=== PATIENT | male | born 1975 | race African-American/Black ===

== ENCOUNTER 2016-06-30 01:54 | Emergency (ER) | payer BC, OTHER ==
[2016-06-30] MEDS ORDERED: PREDNISONE 20 MG TABLET PO ONE (02:18)
--- NOTE | 2016-06-30 02:18 | ER Document Report ---
ED General - General Chief Complaint: Knee Pain Stated Complaint: RIGHT KNEE, LEFT FOOT PAIN Notes: Patient is a 40-year-old male presents with complaint of pain in her right knee. Patient is a history recurrent gout. He's had doubts in multiple joints. He's had in his knee before. He says he started nose and the pain yesterday. No previous history of surgeries on his knee. No fevers. He says the pain feels exactly like his gout pain. He is on urloric. He is on indomethacin which she started yesterday when he started feeling the pain. He says prednisone is helping him significantly in the past. No recent injuries. No other complaints at this time. He denies recent alcohol use. TRAVEL OUTSIDE OF THE [place] IN LAST 30 DAYS: No - Related Data Allergies/Adverse Reactions: No Known Allergies Allergy (Unverified 04/03/12 03:22) Past Medical History - Social History Smoking Status: Never Smoker Chew tobacco use (# tins/day): No Frequency of alcohol use: Rare Drug Abuse: None Family History: Reviewed & Not Pertinent Patient has suicidal ideation: No Patient has homicidal ideation: No - Immunizations Hx Diphtheria, Pertussis, Tetanus Vaccination: No Review of Systems - Review of Systems Notes: My Normal Review Basic REVIEW OF SYSTEMS: CONSTITUTIONAL : Denies fever, chills, or sweats. Denies recent illness. EENT: Denies eye, ear, throat, or mouth pain or symptoms. Denies nasal or sinus congestion. RESPIRATORY: Denies cough, cold, or chest congestion. Denies shortness of breath, difficulty breathing, or wheezing. GASTROINTESTINAL: Denies abdominal pain. Denies nausea, vomiting, or diarrhea. Denies constipation. Last BM: MUSCULOSKELETAL: Knee pain. SKIN: Denies rash or skin lesions. NEUROLOGICAL: Denies altered mental status or loss of consciousness. Denies headache. Denies weakness or paralysis or loss of use of either side. Denies problems with gait or speech. Denies sensory or motor loss. ALL OTHER SYSTEMS REVIEWED AND NEGATIVE. Physical Exam - Vital signs Vitals: Temp Pulse Resp BP Pulse Ox 97.7 F 86 18 145/87 H 100 06/30/16 01:59 06/30/16 01:59 06/30/16 01:59 06/30/16 01:59 06/30/16 01:59 - Notes Notes: General Appearance: Well nourished, alert, cooperative, no acute distress, moderate obvious discomfort. Vitals: reviewed, See vital signs table. Extremities: strength 5/5 in all extremities, good pulses in all extremities, swelling and slight warmth to the right knee consistent with gout exacerbation. No redness. Remainder of extremities are nontender. Skin: warm, dry, appropriate color, no rash Neuro: speech clear, oriented x 3, normal affect, responds appropriately to questions. Course - Vital Signs Vital signs: Temp Pulse Resp BP Pulse Ox 97.7 F 86 18 145/87 H 100 06/30/16 01:59 06/30/16 01:59 06/30/16 01:59 06/30/16 01:59 06/30/16 01:59 - Transfer of Care Notes: 06/30/16 02:47 Patient's history and exam findings are consistent with gout. His exam findings are not consistent with septic joint. He's had no fevers and is no redness to his knee. At this time I feel he safe to be discharged home. I'll continue the indomethacin. I will place him a prednisone as he says this is helped greatly for him in the past. I will prescribe him some pain medicine for when the pain is more intense. Patient encouraged return to ER if he has redness to the knee, fevers, or increasing pain or swelling. Patient agrees with plan will be discharged home. Dictation of this chart was performed using voice recognition software; therefore, there may be some unintended grammatical errors. Discharge - Discharge Clinical Impression: Gout attack Qualifiers: Gout site: knee Gout etiology: unspecified cause Laterality: right Qualified Code(s): M10.9 - Gout, unspecified Condition: Good Disposition: HOME, SELF-CARE Additional Instructions: Gout You have been diagnosed as having gout. Gout is a problem caused by an excess of uric acid, a natural chemical found in the body. The cause of this disease is unknown. Gout arthritis occurs when crystals of uric acid form in the joints. The big toe is the most common joint involved, but any joint can become affected. Persons with gout may also form uric acid kidney stones, resulting in flank pain and blood in the urine. Nodules of uric acid may form under the skin. The first step of treatment is to decrease the inflammation in the joint with antiinflammatory medication. Medication to lower the uric acid level in the blood may then be prescribed. This medication should be taken regularly, as any sudden change in dosage may provoke an attack of gout. Some foods, such as red meat, can provoke an attack in some gout sufferers. Call the doctor if new symptoms arise, or if you do not improve. Gout Diet Changing your diet can decrease the uric acid in your blood. High levels of uric acid cause gouty arthritis and uric acid kidney stones. If you have gout , you should avoid meats that are high in purine. Meat products to avoid include liver, kidneys, and brains. In general, poultry is better than red meats. Seafoods to avoid include anchovies, sardines, tiwari, mackerel, and scallops. In addition to limiting purine-rich foods, people with gout should limit protein intake to 10-15% of total calories. Carbohydrate intake should be around 50% of total daily calories. Limit fat intake to 30% of total daily calories. Cholesterol intake should be less than 300 mg/day. Maintain or achieve a healthy body weight. Weight loss should be gradual. Rapid weight loss can actually increase uric acid levels temporarily. Alcohol, especially beer, should be avoided. Get plenty of fluids. This dilutes urinary uric acid, and helps prevent uric acid kidney stones. Drink eight to twelve cups of water daily. Please stop taking the ultram. Please follow up with your doctor this week to have your knee reevaluated. Please return to the ER immediately if you have fevers, worsening pain, or feel unwell. Prescriptions: Hydrocodone/Acetaminophen [[place] 5-325 mg Tablet] 1 tab PO Q4 PRN #16 tablet PRN Reason: For Breakthrough Pain Prednisone 10 mg PO ASDIR #42 tablet Forms: Return to Work
[2016-06-30] MEDS ORDERED: HYDROCODONE/ACETAMINOPHEN 5-325 MG 6 TAB/DSPK PO PRN (02:20)
[2016-06-30 03:00] VITALS: BP 123/63
== END 2016-06-30 03:03 | disposition home or self-care (01) ==
LOC: ER 01:54
DX: M10.9 Gout, unspecified (principal); M25.561 Pain in right knee
CPT/HCPCS: 99283; J7512

== ENCOUNTER 2018-04-06 21:19 | Emergency (ER) | payer SELFPAY ==
--- NOTE | 2018-04-06 22:12 | RADIOLOGY REPORT (SQ) ---
EXAM DESCRIPTION: XR WRIST 3 OR MORE VIEWS COMPLETED DATE/TME: 04/06/2018 00:00 CLINICAL HISTORY: 42 years, Male, pain COMPARISON: EXAM DESCRIPTION: CLINICAL HISTORY: pain COMPARISON: None FINDINGS: 3 view(s) submitted. No fracture or dislocation is identified. Bone marrow attenuation is unremarkable. No radiopaque foreign body is identified. IMPRESSION: No acute fracture or dislocation. NUMBER OF VIEWS: TECHNIQUE: LIMITATIONS: None. FINDINGS: IMPRESSION: 2010 [facility] [employer]- All Rights Reserved
[2018-04-06] MEDS ORDERED: DEXAMETHASONE SOD PHOS INJ 10 MG/1 ML VIAL IM ONE (23:56)
--- NOTE | 2018-04-07 00:09 | ER Document Report ---
HPI - HPI Patient complains to provider of: gout to left wrist Onset: Last week Onset/Duration: Gradual, Worse Quality of pain: Throbbing Severity: Severe Pain Level: 5 Context: 42-year-old male patient has a history of gout and was seen by his primary care on last Wednesday went to urgent care on Wednesday came to the ED today. He states his primary care doctor doctor started him on prednisone then he went he went to urgent care today they stopped his prednisone and started him on Indocin and [place]. He states last time he had a similar incident of gout they gave him a shot of steroid and it helped more. He states he just was having pain and nothing seemed to help so he came to the emergency room. He states he has not been taken his allopurinol as he is supposed to and is not been following his gout diet as he was supposed to. Associated Symptoms: Other Exacerbated by: Movement Relieved by: Denies Similar symptoms previously: Yes Recently seen / treated by doctor: Yes - ROS ROS below otherwise negative: Yes - CONSTITUTIONAL Constitutional: DENIES: Fever, Chills - EENT EENT: DENIES: Sore Throat, Ear Pain, Eye problems - NEURO Neurology: DENIES: Headache, Weakness, Vision blurred, Dizzinesss / Vertigo - CARDIOVASCULAR Cardiovascular: DENIES: Chest pain - RESPIRATORY Respiratory: DENIES: Coughing - GASTROINTESTINAL Gastrointestinal: DENIES: Abdominal Pain, Black / Bloody Stools - URINARY Urinary: DENIES: Dysuria, Urgency, Frequency - MUSCULOSKELETAL Musculoskeletal: REPORTS: Extremity pain - l wrist - DERM Skin Color: Erythema Skin Problems: None Past Medical History - General Information source: Patient - Social History Smoking Status: Current Some Day Smoker Chew tobacco use (# tins/day): No Frequency of alcohol use: None Drug Abuse: None Lives with: Family Family History: Reviewed & Not Pertinent Patient has suicidal ideation: No Patient has homicidal ideation: No - Past Medical History Cardiac Medical History: Reports: None Pulmonary Medical History: Reports: None EENT Medical History: Reports: None Neurological Medical History: Reports: None Endocrine Medical History: Reports: None Renal/ Medical History: Reports: None Malignancy Medical History: Reports None GI Medical History: Reports: None Musculoskeletal Medical History: Reports Hx Arthritis, Reports Hx Gout Surgical Hx: Negative - Immunizations Hx Diphtheria, Pertussis, Tetanus Vaccination: No Vertical Provider Document - CONSTITUTIONAL Agree With Documented VS: Yes Exam Limitations: No Limitations General Appearance: WD/WN, Mild Distress - INFECTION CONTROL TRAVEL OUTSIDE OF THE [place] IN LAST 30 DAYS: No - HEENT HEENT: Atraumatic, Normal ENT Exam, Normocephalic, PERRLA - RESPIRATORY Respiratory: Breath Sounds Normal, No Respiratory Distress - CARDIOVASCULAR Cardiovascular: Regular Rate, Regular Rhythm - MUSCULOSKELETAL/EXTREMETIES Musculoskeletal/Extremeties: Tender, Edema Notes: Red warm left wrist due to gout. Patient states he has not been following his instructions on his gout has not been taking his medications as prescribed. He states he went to his primary care doctor was started on prednisone they went to urgent care on Wednesday and got pain medicine and Indocin. He states that he came to the emergency room because he did not think the [place] was strong enough for his pain. - NEURO Level of Consciousness: Awake, Alert Motor/Sensory: No Motor Deficit, No Sensory Deficit Deep Tendon Reflexes: 2+ Course - Re-evaluation Re-evalutation: 04/07/18 02:55 X-rays discussed with patient and patient was given a shot of Decadron. Patient was instructed to take his prednisone and his son and [place] as instructed and to follow-up with his primary doctor. Patient was given instructions on gout diet and gout treatments. Patient was instructed to follow -up with his primary doctor. 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 Gout is a problem caused by an excess of uric acid, a natural chemical found in the body. The cause of this disease is unknown. Gout arthritis occurs when crystals of uric acid form in the joints. The big toe is the most common joint involved, but any joint can become affected. Persons with gout may also form uric acid kidney stones, resulting in flank pain and blood in the urine. Nodules of uric acid may form under the skin. The first step of treatment is to decrease the inflammation in the joint with antiinflammatory medication. Medication to lower the uric acid level in the blood may then be prescribed. This medication should be taken regularly, as any sudden change in dosage may provoke an attack of gout. Some foods, such as red meat, can provoke an attack in some gout sufferers. Call the doctor if new symptoms arise, or if you do not improve. Gout Diet Changing your diet can decrease the uric acid in your blood. High levels of uric acid cause gouty arthritis and uric acid kidney stones. If you have gout , you should avoid meats that are high in purine. Meat products to avoid include liver, kidneys, and brains. In general, poultry is better than red meats. Seafoods to avoid include anchovies, sardines, tiwari, mackerel, and scallops. In addition to limiting purine-rich foods, people with gout should limit protein intake to 10-15% of total calories. Carbohydrate intake should be around 50% of total daily calories. Limit fat intake to 30% of total daily calories. Cholesterol intake should be less than 300 mg/day. Maintain or achieve a healthy body weight. Weight loss should be gradual. Rapid weight loss can actually increase uric acid levels temporarily. Alcohol, especially beer, should be avoided. Get plenty of fluids. This dilutes urinary uric acid, and helps prevent uric acid kidney stones. Drink eight to twelve cups of water daily. STEROID MEDICATION: You have been given an injection of medicine of the cortisone/steroid class. This medication is used to control inflammation or allergy. It is often continued as a pill for a short period of time, until the acute process subsides. There are usually no side effects from short-term use of cortisone-like medications. Some persons feel an increased sense of well-being and are not sleepy at bedtime. Long-term use of cortisone medications is best avoided, unless required for a severe condition. If your condition does not remit, or relapses after the course of corticosteroid medication, you should consult your physician. Anti-Inflammatory Medication Continue taking your anti-inflammatory medication and this and as prescribed. This is an excellent, safe drug for pain control. In addition, it has potent antiinflammatory effects which are beneficial, especially in the treatment of injuries, arthritis, or tendonitis. It's best to take this medicine with food. Persons with ulcer disease or allergy to aspirin should notify their physician of this before taking this drug. Take the medication exactly as prescribed. Don't take additional doses unless instructed to do so by your doctor. If you develop wheezing, shortness of breath, hives, faintness, stomach pain, vomiting, or dark black stools, return for re-evaluation at once. Oral Narcotic Medication Continue taking your [place] as prescribed. This medication is a narcotic. It's best taken with food, as nausea can result if taken on an empty stomach. Don't operate machinery or drive within six hours of taking this medication. Do not combine this medicine with alcohol, or with any medication which can cause sedation (such as cold tablets or sleeping pills) unless you get permission from the physician. Narcotics tend to cause constipation. If possible, drink plenty of fluids and eat a diet high in fiber and fruits. FOLLOW-UP CARE: If you have been referred to a physician for follow-up care, call the physician s office for an appointment as you were instructed or within the next two days. If you experience worsening or a significant change in your symptoms, notify the physician immediately or return to the Emergency Department at any time for re-evaluation. Referrals: EVELINE GUERRIER MD [EMERITUS] - Follow up as needed
[2018-04-07 00:20] VITALS: BP 127/89
== END 2018-04-07 00:20 | disposition home or self-care (01) ==
LOC: ER 21:19
DX: M1A.0320 Idiopathic chronic gout, left wrist, without tophus (tophi) (principal); Z79.899 Other long term (current) drug therapy; F17.200 Nicotine dependence, unspecified, uncomplicated
CPT/HCPCS: 99283; 96372; 73110; J1100

== ENCOUNTER 2018-04-20 21:38 | Emergency (ER) | payer SELFPAY ==
[2018-04-20 21:45] VITALS: BP 133/82
[2018-04-20] MEDS ORDERED: OXYCODONE-ACETAMINOPHEN 5-325 MG TABLET PO ONE (22:19)
[2018-04-20] MEDS ORDERED: IBUPROFEN 600 MG TABLET PO ONE (22:19)
--- NOTE | 2018-04-20 23:23 | ER Document Report ---
ED General - General Chief Complaint: Wrist Pain Stated Complaint: LEFT WRIST SWELLING Time Seen by Provider: 04/20/18 22:19 Mode of Arrival: Ambulatory Information source: Patient Notes: 42-year-old male with gout presents with complaint of left wrist pain that has been ongoing for 1 month. Patient denies any injury. He was recently seen and diagnosed with gout which he suffers from frequently. He states he did complete his prednisone course but that the pain quickly improved. Patient denies any fever, chills, nausea, vomiting. TRAVEL OUTSIDE OF THE [place] IN LAST 30 DAYS: No - HPI Onset: Other Onset/Duration: Persistent, Worse Quality of pain: Achy, Throbbing Severity: Moderate Associated symptoms: denies: Chest pain, Fever, Nausea, Vomiting, Shortness of breath Exacerbated by: Movement Relieved by: Denies Similar symptoms previously: Yes Recently seen / treated by doctor: Yes - Related Data Allergies/Adverse Reactions: No Known Allergies Allergy (Verified 06/30/16 02:41) Past Medical History - General Information source: Patient, [facility] Records - Social History Smoking Status: Never Smoker Frequency of alcohol use: None Drug Abuse: None Lives with: Family Family History: Reviewed & Not Pertinent Patient has suicidal ideation: No Patient has homicidal ideation: No Pulmonary Medical History: Reports: Hx Bronchitis Renal/ Medical History: Denies: Hx Peritoneal Dialysis Musculoskeletal Medical History: Reports Hx Arthritis, Reports Hx Gout - Immunizations Hx Diphtheria, Pertussis, Tetanus Vaccination: No Review of Systems - Review of Systems Notes: REVIEW OF SYSTEMS: CONSTITUTIONAL : Denies fever, chills, or sweats. Denies recent illness. Denies weight loss, recent hospitalizations. EENT: Denies visual changes, eye pain. Denies sore throat, oral lesions, difficulty swallowing. CARDIOVASCULAR: Denies chest pain. Denies palpitations. Denies lower extremity edema. RESPIRATORY: Denies cough. Denies shortness of breath, wheezing. GASTROINTESTINAL: Denies abdominal pain or distention. Denies nausea, vomiting , or diarrhea. Denies blood in vomitus, stools, or per rectum. Denies black, tarry stools. Denies constipation. GENITOURINARY: Denies difficulty urinating, painful urination, frequency, blood in urine, testicular pain or penile discharge. MUSCULOSKELETAL: Denies back or neck pain or stiffness. SKIN: Denies rash, lesions or sores. HEMATOLOGIC : Denies easy bruising or bleeding. LYMPHATIC: Denies swollen glands. NEUROLOGICAL: Denies confusion or altered mental status. Denies loss of consciousness. Denies dizziness or lightheadedness. Denies headache. Denies weakness or paralysis. Denies problems difficulty with ambulation, slurred speech. Denies sensory loss, numbness, or tingling. Denies seizures. PSYCHIATRIC: Denies anxiety or stress. Denies depression, suicidal ideation, or Physical Exam - Vital signs Vitals: Temp Pulse Resp BP Pulse Ox 99.2 F 83 16 133/82 H 94 04/20/18 21:44 04/20/18 21:44 04/20/18 21:44 04/20/18 21:44 04/20/18 21:44 Interpretation: Hypertensive - Notes Notes: PHYSICAL EXAMINATION: GENERAL: Well-appearing, well-nourished and in no acute distress. HEAD: Atraumatic, normocephalic. EYES: Pupils equal round and reactive to light, extraocular movements intact, sclera anicteric, conjunctiva are normal. ENT: Nares patent, oropharynx clear without exudates. Moist mucous membranes. NECK: Normal range of motion, supple without lymphadenopathy LUNGS: Breath sounds clear to auscultation bilaterally and equal. No wheezes rales or rhonchi. HEART: Regular rate and rhythm without murmurs ABDOMEN: Soft, nontender, nondistended abdomen. No guarding, no rebound. No masses appreciated. Musculoskeletal: Normal range of motion, no pitting or edema. No cyanosis. Left wrist-tender with palpation, no associated erythema, warmth, swelling. NEUROLOGICAL: Cranial nerves grossly intact. Normal speech, normal gait. Normal sensory, motor exams PSYCH: Normal mood, normal affect. SKIN: Warm, Dry, normal turgor, no rashes or lesions noted. Course - Re-evaluation Re-evalutation: 04/21/18 13:44 42-year-old male with history of of persistent presents with complaint of left wrist pain that has been ongoing for approximately 1 month with you. Was seen here approximately 2 weeks ago for similar symptoms and diagnosed with gout. Patient states that he did take his prescribed medication and had some improvement but as soon as he completed his course the pain returned. Wrist is diffusely tender but without erythema warmth or overlying cuts in the skin. Exam and history is consistent with. Patient did receive prednisone, Percocet during his ED course. Patient did have imaging of the left wrist previous visit this month which was reviewed and showed no fracture, dislocation or degenerative changes. Discharged home with colchicine, Naprosyn and prednisone. I have low suspicion for septic joint. Patient was evaluated and treated as appropriate for the patient's presenting symptoms and complaint, with consideration of any critical or life threatening conditions that may be associated with their obtained history and exam as noted above. All results were discussed with patient. Patient provided the opportunity to ask questions, and express concerns. Patient was educated on treatments based on their presumed diagnosis as noted above. At this time we will discharge the patient with return precautions and follow-up recommendations. Verbal discharge instructions given a the bedside. Medication warnings reviewed. Patient is in agreement with this plan and has verbalized understanding of return precautions. After careful consideration I feel that that patient can be safely discharged from the emergency department, they were advised to followup with a primary care physician in 2-3 days. Dictation on this chart was performed using voice recognition software and may result in unintended grammatical, spelling, syntax or errors. 04/21/18 13:46 - Vital Signs Vital signs: Temp Pulse Resp BP Pulse Ox 99.2 F 83 16 133/82 H 94 04/20/18 21:44 04/20/18 21:44 04/20/18 21:44 04/20/18 21:44 04/20/18 21:44 Discharge - Discharge Clinical Impression: Left wrist pain, Elevated blood pressure reading Gout Qualifiers: Gout site: hand Gout etiology: unspecified cause Chronicity: chronic Laterality : left Qualified Code(s): M1A.0420 - Idiopathic chronic gout, left hand, without tophus (tophi) Condition: Good Disposition: HOME, SELF-CARE Instructions: Gout ([facility]), Gout Diet ([facility]) Additional Instructions: You were seen today for gout. Please take the second dose of colchicine that you were sent home with 1 hour after receiving yourfirst dose. Naprosyn as directed and Tylenol 1000 mg every 6 hours follow-up with your primary care doctor in the next several days. Return if you have fever greater than 100.4F , worsening pain, become unable to move the knee, or have any other symptoms that are worrisome to you. Prescriptions: Colchicine [Colchicine 0.6 mg Tablet] 0.6 mg PO ONCE PRN 1 Days #1 tablet PRN Reason: Naproxen 500 mg PO BID #20 tablet Oxycodone HCl/Acetaminophen [Percocet 5-325 mg Tablet] 1 tab PO Q6H PRN #15 tab PRN Reason: Forms: Elevated Blood Pressure
[2018-04-20] MEDS ORDERED: DEXAMETHASONE 4 MG TABLET PO ONE (23:28)
[2018-04-20] MEDS ORDERED: COLCHICINE 0.6 MG TABLET PO ONE (23:30)
== END 2018-04-21 00:03 | disposition home or self-care (01) ==
LOC: ER 21:38
DX: M1A.0420 Idiopathic chronic gout, left hand, without tophus (tophi) (principal); M25.532 Pain in left wrist; R03.0 Elevated blood-pressure reading, without diagnosis of hypertension
CPT/HCPCS: 99283